=== PATIENT | female | born 1985 | race Caucasian/White ===

== ENCOUNTER 2023-07-17 07:44 | Outpatient (CLI) | payer BC, SELFPAY ==
--- NOTE | 2023-07-17 06:45 | DI.US_ITS ---
Exam(s) US OB SHAHBAZ WEIGHT EXAM: US OB SHAHBAZ WEIGHT CLINICAL HISTORY: ,HYPERTENSION,I10. TECHNIQUE: Transabdominal obstetrical ultrasound performed. COMPARISON: No exams were available for comparison FINDINGS: Number of fetuses: 1 position: CEPHALIC Placental location: There is a grade 1 anterior and fundal placenta. The placental tip is 12.2 cm fr om the internal os. No evidence of previa. BIOMETRIC DATA: BPD: 8.7cm, 35weeks 1day HC: 32.97cm, 37weeks 4days AC: 32.14cm, 36weeks FL: 6.8cm, 35weeks EFW: 2,776.52g, 6lb 2.57oz, 97% Composite Age: 36weeks SALLY: 08/14/2023 Heart Rate: 148bpm Amniotic fluid index: 14.05cm. Visually, amount of fluid is within normal limits. IMPRESSION: 1. Single live intrauterine gestation as above. 2. Estimated weight is 2777gms. This is the 97th percentile. 3. Amniotic fluid index is 14.1 cm. Visually within normal limits. DATA REPOSITORY:
[2023-07-17 09:58] VITALS: BP 123/82; PULSE 95; TEMP 37
[2023-07-17 10:16] VITALS: BP 123/82; PULSE 95
[2023-07-17 10:30] VITALS: BP 128/85; PULSE 87
--- NOTE | 2023-07-17 11:09 | W.OBNST ---
Date of service: 07/17/23 Time of Service: 11:09 NST Evaluation Gestational Age Gestational Age in Weeks and Days: 32 Weeks and 5Days Note Ultrasound Done: N/A. NST Note Note: Luz Maria is here for NST due to chronic hypertension US today shows baby in 97%ile. Reactive NST. . Will continue weekly NST and BP checks. NST Reviewed and Verified by: Florence Bethea
[2023-07-17 11:51] VITALS: BP 123/82; PULSE 95; TEMP 37
--- NOTE | 2023-07-17 11:51 | W.OBNST ---
Date of service: 07/17/23 Time of Service: 11:52 NST Evaluation Reason for NST Reasons for Nonstress Test: GESTATIONAL HYPERTENSION Gestational Age Gestational Age in Weeks and Days: 32 Weeks and 5Days Test and Monitor Explained Test/Monitor Explained: Test Explained Vital Signs Blood Pressure: 123/82 Pulse: 95 Temperature: 98.6 F NST Information Date on Monitor: 07/17/23 Time on Monitor: 10:00 Date off Monitor: 07/17/23 Time off Monitor: 10:42 Total Time on Monitor: 42 NST Interventions: None NST Evaluation Patient States Movement: Present FHR Baseline: 140 Variability: Moderate 6-25 bpm Accelerations: 15x15 Decelerations: None NST Results: Reactive Note Ultrasound Done: N/A. NST Note Note: Luz Maria is here for NST due to chronic hypertension. Bp repeated 128/85. US today shows baby in 97%ile. Reactive NST. Will continue weekly NST and BP checks. NST Reviewed and Verified by: Florence Bethea
== END 2023-07-17 07:45 | disposition home or self-care (01) ==
PROVIDERS: Visit Provider Advanced Practice Midwife
DX: O13.3 Gestational [pregnancy-induced] hypertension without significant proteinuria, third trimester (principal); Z3A.32 32 weeks gestation of pregnancy
CPT/HCPCS: 76816; 59025

== ENCOUNTER 2023-07-23 05:57 | Outpatient (CLI) | payer BC, SELFPAY ==
[2023-07-23 12:34] VITALS: BP 132/80; PULSE 89
[2023-07-23 12:55] VITALS: BP 132/80; PULSE 89
--- NOTE | 2023-08-28 12:26 | W.OBNST ---
Date of service: 07/23/23 Time of Service: 14:00 NST Evaluation Reason for NST Reasons for Nonstress Test: CHRONIC MATERNAL DM Gestational Age Gestational Age in Weeks and Days: 38 Weeks and 4Days Test and Monitor Explained Test/Monitor Explained: Test Explained Vital Signs Blood Pressure: 132/80 Pulse: 89 Urine Results Urine Protein: Negative Urine Ketones: Negative Urine Glucose: Negative Urine Blood: Negative NST Information Date on Monitor: 07/23/23 Time on Monitor: 12:36 Date off Monitor: 07/23/23 Time off Monitor: 13:00 Total Time on Monitor: 24 NST Interventions: PO Hydration and Reposition Patient Contraction Frequency: 0 NST Evaluation Patient States Movement: Present FHR Baseline: 130 Variability: Moderate 6-25 bpm Accelerations: 15x15 Decelerations: None NST Results: Reactive Note Ultrasound Done: N/A. NST Note Note: Pt counseled regarding elevated BP and need for twice weekly NSTs for assessment of well being. She agrees to monitoring with NSTs. NST Reviewed and Verified by: Ronda Love
[2023-08-28 12:29] VITALS: BP 132/80; PULSE 89
== END 2023-07-23 13:00 ==
LOC: BCD 06:02 → OBS 12:25
PROVIDERS: Visit Provider Obstetrics & Gynecology Gynecology
DX: O13.3 Gestational [pregnancy-induced] hypertension without significant proteinuria, third trimester (principal); Z3A.33 33 weeks gestation of pregnancy
CPT/HCPCS: 59025

== ENCOUNTER 2023-08-06 09:31 | Outpatient (CLI) | payer BC, SELFPAY ==
[2023-08-06 13:47] VITALS: BP 132/93; PULSE 96; TEMP 36.7
[2023-08-06 14:01] VITALS: BP 132/93; PULSE 96
[2023-08-06 14:30] VITALS: BP 131/70; PULSE 85
[2023-08-06 15:12] LABS: COMMENT (LAB VIEW ONLY) 41.28 mg/dL; PROTEIN 10.5 mg/dL; Prot/Crea Ur Ratio 0.25
--- NOTE | 2023-08-28 12:35 | W.OBNST ---
Date of service: 08/06/23 Time of Service: 16:00 NST Evaluation Reason for NST Reasons for Nonstress Test: CHRONIC HYPERTENSION Gestational Age Gestational Age in Weeks and Days: 38 Weeks and 4Days Test and Monitor Explained Test/Monitor Explained: Test Explained, Monitor Explained and Patient Verbalized Understanding Vital Signs Blood Pressure: 132/93 Pulse: 96 Temperature: 98.1 F Urine Results Urine Protein: Negative Urine Ketones: Negative Urine Glucose: Negative Urine Blood: Negative NST Information Date on Monitor: 08/06/23 Time on Monitor: 13:53 Date off Monitor: 08/06/23 Time off Monitor: 14:24 Total Time on Monitor: 31 NST Interventions: PO Hydration Contraction Frequency: 0 NST Evaluation Patient States Movement: Present FHR Baseline: 130 Variability: Moderate 6-25 bpm Accelerations: 15x15 Decelerations: None NST Results: Reactive Note Ultrasound Done: N/A. NST Note Note: Reactive NST. Pt agrees to continue twice weekly NSTs. NST Reviewed and Verified by: Ronda Love
[2023-08-28 12:37] VITALS: BP 132/93; PULSE 96; TEMP 36.7
== END 2023-08-06 15:30 ==
LOC: BCD 09:32 → OBS 13:44
PROVIDERS: Advanced Practice Midwife; Visit Provider Obstetrics & Gynecology Gynecology
DX: O13.3 Gestational [pregnancy-induced] hypertension without significant proteinuria, third trimester (principal); Z3A.38 38 weeks gestation of pregnancy
CPT/HCPCS: 59025; 82565; 84156

== ENCOUNTER 2023-08-06 12:53 | Outpatient (CLI) | payer BC, SELFPAY ==
[2023-08-06 13:49] LABS: HCT 40.5 % (36.0-46.0); HGB 13.3 g/dL (11.2-15.7); MCH 31.4 pg (27.0-33.0); MCHC 32.8 % (32.0-36.0); MCV 96 fL (80-95); MPV 11.8 fL (8.0-11.0); Platelet Count 165 10^3/uL (130-400); RBC 4.24 10^6/uL (3.93-5.22); RDW 13.8 % (11.7-14.6); RDW-SD 48.5 fL; WBC 9.35 10^3/uL (4.4-10.8)
[2023-08-06 14:35] LABS: ALT 14 U/L (14-59); AST 11 U/L (15-37); Albumin 2.8 g/dL (3.4-5.0); Alkaline Phosphatase 107 U/L (46-116); Anion Gap 11.6 mmol/L (3-11); BUN 6 mg/dL (7-18); Bilirubin, Total 0.4 mg/dL (0.2-1.0); CO2 24.4 mmol/L (21.0-32.0); CREATININE 0.8 mg/dL (0.55-1.02); Chloride 105 mmol/L (98-107); Estimated GFR 97.26 (mL/min/1.73m2); Glucose 88 mg/dL (74-106); Potassium 3.8 mmol/L (3.5-5.1); Sodium 141 mmol/L (136-145); Total Protein 6.8 g/dL (6.4-8.2); Uric Acid 3.9 mg/dL (2.6-6.0)
== END 2023-08-06 12:54 | disposition home or self-care (01) ==
LOC: LBO 12:54
PROVIDERS: Visit Provider Advanced Practice Midwife
DX: O13.3 Gestational [pregnancy-induced] hypertension without significant proteinuria, third trimester (principal); Z34.93 Encounter for supervision of normal pregnancy, unspecified, third trimester
CPT/HCPCS: 36415; 80053; 85027; 86850; 86900; 86901; 84550

== ENCOUNTER 2023-08-13 08:00 | Outpatient (CLI) | payer BC, SELFPAY ==
[2023-08-13 12:18] VITALS: BP 140/96; PULSE 90; TEMP 36.8
[2023-08-13 12:27] VITALS: BP 140/96; PULSE 90
[2023-08-13 12:39] VITALS: BP 131/86; PULSE 88
[2023-08-13 13:45] LABS: Abs Immature Grans 0.05 10^3/uL (0.0-0.06); Absolute Basophil Count 0.01 10^3/uL (0.0-0.2); Absolute Eosinophil Count 0.05 10^3/uL (0.0-0.7); Absolute Lymphocyte Count 2.05 10^3/uL (1.2-3.4); Absolute Monocyte Count 0.72 10^3/uL (0.1-0.8); Absolute Neutrophil Count 6.75 10^3/uL (1.2-6.7); Basophils % 0.1; Eosinophils % 0.5; HGB 13.1 g/dL (11.2-15.7); Immature Grans % 0.5; Lymphocytes % 21.3; MCH 31.1 pg (27.0-33.0); MCHC 32.8 % (32.0-36.0); MCV 95 fL (80-95); MPV 11.8 fL (8.0-11.0); Monocytes % 7.5; Neutrophils % 70.1; Platelet Count 154 10^3/uL (130-400); RBC 4.21 10^6/uL (3.93-5.22); RDW 13.6 % (11.7-14.6); RDW-SD 47.4 fL; WBC 9.63 10^3/uL (4.4-10.8)
--- NOTE | 2023-08-13 13:50 | W.OBNST ---
Date of service: 08/13/23 Time of Service: 13:51 NST Evaluation Reason for NST Reasons for Nonstress Test: GESTATIONAL HYPERTENSION Gestational Age Gestational Age in Weeks and Days: 36 Weeks and 4Days Test and Monitor Explained Test/Monitor Explained: Test Explained, Monitor Explained and Patient Verbalized Understanding Vital Signs Blood Pressure: 140/96 Pulse: 90 Temperature: 98.2 F Urine Results Urine Protein: Negative Urine Ketones: Negative Urine Glucose: Negative Urine Blood: Negative NST Information Date on Monitor: 08/13/23 Time on Monitor: 12:20 Date off Monitor: 08/13/23 Time off Monitor: 12:53 Total Time on Monitor: 33 NST Interventions: PO Hydration Contraction Frequency: 0 NST Evaluation Patient States Movement: Present FHR Baseline: 130 Variability: Moderate 6-25 bpm Accelerations: 15x15 Decelerations: None NST Results: Reactive Note Ultrasound Done: N/A. NST Note Note: Category 1, reactive NST. NST Reviewed and Verified by: Kandy Garcia
[2023-08-13 13:51] VITALS: BP 140/96; PULSE 90; TEMP 36.8
[2023-08-13 13:57] LABS: Diff Comment Agrees w/ Instrument; RBC Morphology Normal
[2023-08-13 13:58] LABS: PROTEIN 13.2 mg/dL
[2023-08-13 14:12] LABS: ALT 16 U/L (14-59); AST 14 U/L (15-37); Albumin 2.9 g/dL (3.4-5.0); Alkaline Phosphatase 106 U/L (46-116); Anion Gap 10.9 mmol/L (3-11); BUN 9 mg/dL (7-18); Bilirubin, Total 0.4 mg/dL (0.2-1.0); CO2 24.1 mmol/L (21.0-32.0); CREATININE 0.7 mg/dL (0.55-1.02); Calcium 9.6 mg/dL (8.5-10.1); Chloride 104 mmol/L (98-107); Estimated GFR 114.16 (mL/min/1.73m2); Glucose 70 mg/dL (74-106); Potassium 3.8 mmol/L (3.5-5.1); Sodium 139 mmol/L (136-145); Total Protein 6.8 g/dL (6.4-8.2)
== END 2023-08-13 14:29 ==
LOC: BCD 08:02 → OBS 12:10
PROVIDERS: Visit Provider Obstetrics & Gynecology
DX: O13.3 Gestational [pregnancy-induced] hypertension without significant proteinuria, third trimester (principal); Z3A.36 36 weeks gestation of pregnancy
CPT/HCPCS: 36415; 80053; 59025; 82565; 84156; 85025; 87081

== ENCOUNTER 2023-08-20 08:46 | Outpatient (CLI) | payer BC, SELFPAY ==
[2023-08-20 13:05] VITALS: BP 127/91; PULSE 88; TEMP 36.5
[2023-08-20 13:21] VITALS: BP 127/91; PULSE 88
--- NOTE | 2023-08-20 14:09 | PDOC.NST_ITS ---
Date of service: 08/20/23 Time of Service: 14:09 NST Evaluation Reason for NST Reasons for Nonstress Test: GESTATIONAL HYPERTENSION Reason for NST Other: PT DENIES HEADACHE OR RT UPPER QUADRANT PAIN Gestational Age Gestational Age in Weeks and Days: 37 Weeks and 4Days Test and Monitor Explained Test/Monitor Explained: Test Explained Vital Signs Blood Pressure: 127/91 Pulse: 88 Temperature: 97.7 F Urine Results Urine Protein: Negative Urine Ketones: Negative Urine Glucose: Negative Urine Blood: Negative NST Information Date on Monitor: 08/20/23 Time on Monitor: 13:00 NST Interventions: None NST Evaluation Patient States Movement: Present FHR Baseline: 130 Variability: Moderate 6-25 bpm Accelerations: 15x15 Decelerations: None NST Results: Reactive Note Ultrasound Done: N/A. NST Note Note: NST done due to HTN on Labetalol 200 mg PO twice daily. She does not have questions today per RN and prefers to avoid contact with provider. Has appoi ntment 08/23/[address] May and she will keep that appointment. NST is overall reassuring and reactive although difficulty to keep tracing consistently but audible accelerations are present. No signs of labor. NST Reviewed and Verified by: Florence Geronimo
[2023-08-20 14:12] VITALS: BP 127/91; PULSE 88; TEMP 36.5
== END 2023-08-20 15:04 ==
LOC: BCD 08:47 → OBS 12:27
PROVIDERS: Visit Provider Obstetrics & Gynecology
DX: O13.3 Gestational [pregnancy-induced] hypertension without significant proteinuria, third trimester (principal); Z3A.37 37 weeks gestation of pregnancy
CPT/HCPCS: 59025

== ENCOUNTER 2023-08-23 07:43 | Outpatient (CLI) | payer BC, SELFPAY ==
[2023-08-23 14:23] VITALS: BP 142/92; PULSE 91; TEMP 36.7
--- NOTE | 2023-08-23 17:09 | W.OBNST ---
Date of service: 08/23/23 Time of Service: 13:30 NST Evaluation Reason for NST Reasons for Nonstress Test: GESTATIONAL HYPERTENSION Gestational Age Gestational Age in Weeks and Days: 38 Weeks and 0Days Test and Monitor Explained Test/Monitor Explained: Test Explained, Monitor Explained and Patient Verbalized Understanding Vital Signs Blood Pressure: 142/92 Pulse: 91 Temperature: 98.1 F Urine Results Urine Protein: Negative Urine Ketones: Negative Urine Glucose: Negative Urine Blood: Negative NST Information Date on Monitor: 08/23/23 Time on Monitor: 13:22 Date off Monitor: 08/23/23 Time off Monitor: 13:46 Total Time on Monitor: 24 NST Interventions: PO Hydration Contraction Frequency: None NST Evaluation Patient States Movement: Present FHR Baseline: 135 Variability: Moderate 6-25 bpm Accelerations: 15x15 Decelerations: None NST Results: Reactive Note Ultrasound Done: N/A. NST Note Note: Pt taking 200mg Labetalol PO. She is checking home BPs and says they are 130s/80s. She denies s/s of PEC or labor. She plans to return Tues for repeat NST. NST Reviewed and Verified by: Leslie May
[2023-08-23 17:11] VITALS: BP 142/92; PULSE 91; TEMP 36.7
--- NOTE | 2023-08-27 17:25 | W.OBNST ---
Date of service: 08/23/23 Time of Service: 15:00 NST Evaluation Reason for NST Reasons for Nonstress Test: GESTATIONAL HYPERTENSION Gestational Age Gestational Age in Weeks and Days: 38 Weeks and 4Days Test and Monitor Explained Test/Monitor Explained: Test Explained, Monitor Explained and Patient Verbalized Understanding Vital Signs Blood Pressure: 142/92 Pulse: 91 Temperature: 98.1 F Urine Results Urine Protein: Negative Urine Ketones: Negative Urine Glucose: Negative Urine Blood: Negative NST Information Date on Monitor: 08/23/23 Time on Monitor: 13:22 Date off Monitor: 08/23/23 Time off Monitor: 13:46 Total Time on Monitor: 24 NST Interventions: PO Hydration Contraction Frequency: None NST Evaluation Patient States Movement: Present FHR Baseline: 135 Variability: Moderate 6-25 bpm Accelerations: 15x15 Decelerations: None NST Results: Reactive Note Ultrasound Done: N/A. NST Note Note: Pt presents for scheduled NST on BC. She reports that she has been compliant with Labetalol dosing. 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 She will continue with twice weekly NSTs. NST Reviewed and Verified by: Ronda Love
[2023-08-27 17:28] VITALS: BP 142/92; PULSE 91; TEMP 36.7
== END 2023-08-23 13:50 ==
LOC: BCD 07:44 → OBS 14:19
PROVIDERS: Visit Provider Obstetrics & Gynecology Gynecology
DX: O13.3 Gestational [pregnancy-induced] hypertension without significant proteinuria, third trimester (principal); Z3A.38 38 weeks gestation of pregnancy
CPT/HCPCS: 59025

== ENCOUNTER 2023-08-27 12:58 | Outpatient (CLI) | payer BC, SELFPAY ==
[2023-08-27 13:12] VITALS: BP 139/100; PULSE 86; TEMP 36.8
[2023-08-27 13:32] VITALS: BP 150/95; PULSE 84
[2023-08-27 13:34] VITALS: BP 171/99; PULSE 85
[2023-08-27 13:59] VITALS: BP 169/106; PULSE 83
--- NOTE | 2023-08-27 14:00 | NUR.NOTE ---
Nursing Note:Dr Rajan in to see pt, performing bedside ulrasound
--- NOTE | 2023-08-27 14:32 | PDOC.NST_ITS ---
Date of service: 08/27/23 Time of Service: 14:36 NST Evaluation Reason for NST Reasons for Nonstress Test: DECREASED MOVEMENT and CHRONIC HYPERTENSION Gestational Age Gestational Age in Weeks and Days: 38 Weeks and 4Days Test and Monitor Explained Test/Monitor Explained: Test Explained Vital Signs Blood Pressure: 139/100 Pulse: 86 Temperature: 98.3 F Urine Results Urine Protein: Negative Urine Ketones: Negative Urine Glucose: Negative Urine Blood: Negative NST Information Time on Monitor: 13:00 Date off Monitor: 08/27/23 Time off Monitor: 13:30 NST Interventions: PO Hydration Contraction Frequency: none Comments: Reactive NST Evaluation Patient States Movement: Present FHR Baseline: 130 Variability: Moderate 6-25 bpm Accelerations: 15x15 Decelerations: None NST Results: Reactive Note Ultrasound Done: SHAHBAZ (HTN) Largest Vertical Pocket: 5.4 Total SHAHBAZ: 12.8 Other Pertinent Findings: Heart Rate, Presentation (VTX) and Placental Location Coding for SHAHBAZ w/NST: Completed Exam. NST Note Note: Pt presented for scheduled NST secondary to gestational HTN. She reports being compliant with Labetalol 200mg twice daily dosing. No H/A, no vision changes, no LE edema or abdomipain. 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 Pt's initial BP while lying down 139/100. Serial repeat BPs 150/95, 171/99, 169/106. Pt was counseled that today's BP represent a change from previous values, that they are considered an indication for immediate induction/move towards delivery. I was not able to convince her with my counseling that she should agree to admission and IOL for prevention of injury to herself or fetus. Pt was advised to increase her Labetalol to 300mg BID and to call the office tomorrow (Pt working from home) morning to report on PM and AM BP. SVE: closed, 25% effaced, -2, midpositon, firm. She was counseled regarding S/S of preeclampsia. Pt left , and while aware of my recommendation to proceed with cervical ripening and IOL she has declined to do so. Will f/u with her tomorrow in am. NST Reviewed and Verified by: Ronda Love
[2023-08-27 14:34] VITALS: BP 139/100; PULSE 86; TEMP 36.8
== END 2023-08-27 14:48 ==
LOC: BCD 12:59 → OBS 13:06
PROVIDERS: Visit Provider Advanced Practice Midwife
DX: O36.8131 Decreased fetal movements, third trimester, fetus 1 (principal); O13.3 Gestational [pregnancy-induced] hypertension without significant proteinuria, third trimester; Z3A.38 38 weeks gestation of pregnancy
CPT/HCPCS: 59025

== ENCOUNTER 2023-08-29 23:45 | Inpatient (IN) | payer BC, SELFPAY ==
[2023-08-28 22:53] VITALS: BP 163/91; PULSE 84
[2023-08-28 23:00] VITALS: BP 145/94; PULSE 85
--- NOTE | 2023-08-28 23:44 | HPE_ITS ---
Date of service: 08/28/23 Time of Service: 23:45 Assessment and Plan Assessment and plan (1) Gestational hypertension affecting first : Status: Acute Assessment and plan: Baseline labs to be drawn. Will monitor BPs (2) Ruptured, membranes, premature: Status: Acute Assessment and plan: Pt starting to feel some cramping so would like to wait and see what happens. She is hesitant to intervene at this point. We discussed balancing the risks of infection that increase the longer she is ruptured vs intervention at an earlier stage. At this point it seems reasonable to give it some time. She declines a cervical exam at this point. OB-HPI Labor/Delivery History of Present Illness Reason for Visit: NST Chief Complaint: Suspected Rupture of Membranes , Associated Signs and Symptoms of Suspected ROM: grossly ruptured. SALLY Calculator Estimated Delivery Date Method Current WG Current Estimate 09/06/23 LMP (Certain) 38w 6d History of Present Expected Delivery Route/Plan - MD WANG - Doug strange circ Plans hypnobirthing and nitrous for labor Specific Issues/Plan 1. Transfer 32 wks from [facility], seeking access to nitrous oxide for labor 2. Stage I cHTN - 1st elevated BP of 142/88 @ 24 wks per records. Neg/nml initial labs @ [facility] [place]-06/18/23 - 07/12/[address] Love: recommend Labetalol 100 mg BID, 2x/wk NST, patient declined. - Pt accepts wkly visits w/NST, growth US - 08/02/23: Pt agrees to Labetalol 100 mg PO BID due to elevated BP's at home ->increase to 200 BID and then 300 BID 08/26. 3. BMI over 30 - Glucola @ 28 [id number] ([facility] [place] records) - ASA recommended in first trimester at [facility] [place] 4. EFW 97%ile @34wks (HC significantly greater than other measurements) Narrative: Pt reports waking up at 9:15 with leaking fluid. She got up and went to the bathroom and laid back down and continued to leak. She started having some cramping about an hour later. Some slight pink-tinge but no bright red blood. Good movement. Review of Systems Constitutional Constitutional: Reports system reviewed and no additional complaints, except as documented Gastrointestinal Gastrointestinal: Denies nausea and Denies vomiting Genitourinary Genitourinary: Reports system reviewed and no additional complaints, except as documented Musculoskeletal Comments: No regular contractions PFSH All Active Problems (Updated 08/29/23 @ 00:01 by Leslie May MD) Ruptured, membranes, premature (Acute) Gestational hypertension affecting first (Acute) Stage 1 hypertension (Acute) (Acute) High BMI (Acute) Advanced maternal age (AMA) in (Acute) Medical History (Updated 08/29/23 @ 00:01 by Leslie May MD) Pyelonephritis in her 20's Surgical History (Updated 07/12/23 @ 12:15 by Florence Geronimo CNM) H/O wisdom tooth extraction Family History (Updated 07/12/23 @ 12:17 by Florence Geronimo CNM) Maternal Grandfather Heart disease Maternal Grandmother Stroke Mother Thyroid disease Paternal Grandmother Pulmonary embolism Maternal Uncle Diabetes Paternal Grandfather Diabetes Social History Smoking risk assessment performed?: No History History 1 Para 0 Hx # Term Pregnancies 0 Multiple births 0 Hx # Pregnancies 0 Ectopic pregnancies 0 AB induced 0 Hx Number of Living Children 0 AB spontaneous 0 Meds Allergies and Home Medications Allergies Allergy/AdvReac Type Severity Reaction Status Date / Time No Known Allergies Allergy Verified 07/23/23 13:11 Home Medications Medication Instructions Recorded Confirmed Type aspirin 81 mg chewable tablet 81 mg PO DAILY 06/27/23 08/13/23 History famotidine 20 mg tablet (Pepcid) 20 mg PO DAILY 06/27/23 08/13/23 History vits no.126-ferrous fum 1 tab PO DAILY 06/27/23 08/13/23 History 28 mg iron-folic acid 800 mcg tablet (Classic ) labetalol 100 mg tablet 200 mg (2 x 100 mg) PO BID #120 08/19/23 Rx tabs Exam Physical Exam Vital signs: Pulse BP 85 145/94 H 08/28/23 23:00 08/28/23 23:00 Vital Signs Reviewed: Yes Detailed Labor and Delivery Exam Mullins Score: Cervical Points Exam 0 1 2 3 Dilation Closed 1-2cm 3-4 cm 5-6cm Effacement 0-30% 40-50% 60-70% 80% Consistency Firm Medium Soft Station -3 -2 -1,0 +1,+2 Position Posterior Mid Anterior Comments: Declined cervical exam at this point. Fetus A Heart Rate Baseline: 130 Monitor Accelerations: 15 X 15 Monitor Decelerations: None Variability: Moderate (6-25 BPM) Presentation: Vertex Categories: Category I Est. Weight: 8 lb 8 oz Date of Membrane Rupture: 08/28/23 Time of Membrane Rupture: 09:15 Detailed HEENT Exam Head: Present normocephalic and atraumatic Detailed Abdominal Exam Comments: gravid, nontender Extremities Exam Extremities Exam: Normal (no edema, 2+ DTRs b/l) Detailed Neurological Exam Neurological: Present alert, oriented X3 and CN II-XII intact DetailedPsychiatric Exam Psychiatric: Present normal affect, normal thought process and cooperative Results Results Group Beta Strep: Negative Blood Type: O+ Rubella Status: Immune Varicella Immunity: Not Tested Risk Assessment Risk for Shoulder Dystocia Historical/Initial OB: POSITIVE FOR: Pre- BMI>30; NEGATIVE FOR: Pelvic Abnormality, Previous Shoulder Dystocia or Previous Macrosomia Increased Risk?: Yes Risk for Pre-Eclampsia Yes, if one or more: POSTIVE FOR: Chronic HTN; NEGATIVE FOR: Hx Pre-E/Gest HTN, Multiple Gestation, Pre-gestational DM, Renal Disease, Systemic Lupus or APA Syndrome Yes, if 2 or more: POSITIVE FOR: Nulliparity and BMI>30 Risk for Post- Hemorrhage Initial: NEGATIVE FOR: Multiple Gestation, Previous PPH, Known Clotting Deficiency, Grand Multiparity or Anticoagulation Date/Initials: 07/12/23 Risks Reviewed Risks Reviewed Upon Admission: Yes
[2023-08-28 23:45] VITALS: BP 145/94; PULSE 86; RESP 16; TEMP 36.5
[2023-08-29] VITALS (169 sets, daily range): BP systolic 123–199; BP diastolic 76–113; PULSE 0–122; RESP 16–18; TEMP 36.3–37.2; O2SAT 96–100; BMI 38.7
[2023-08-29] LABS: HCT 40.9 % (36.0-46.0); MCH 31.9 pg (27.0-33.0); MCHC 34.2 % (32.0-36.0); MCV 93 fL (80-95); MPV 11.9 fL (8.0-11.0); Platelet Count 144 10^3/uL (130-400); RBC 4.39 10^6/uL (3.93-5.22); RDW 13.5 % (11.7-14.6); RDW-SD 45.7 fL; WBC 11.63 10^3/uL (4.4-10.8)
--- NOTE | 2023-08-29 00:12 | W.OBNST ---
Date of service: 08/28/23 Time of Service: 11:00 NST Evaluation Reason for NST Reasons for Nonstress Test: GESTATIONAL HYPERTENSION Gestational Age Gestational Age in Weeks and Days: 38 Weeks and 5Days Test and Monitor Explained Test/Monitor Explained: Test Explained NST Information Date on Monitor: 08/28/23 Time on Monitor: 22:45 Date off Monitor: 08/28/23 Time off Monitor: 23:20 Total Time on Monitor: 35 NST Interventions: None NST Evaluation Patient States Movement: Present FHR Baseline: 130 Variability: Moderate 6-25 bpm Accelerations: 15x15 Decelerations: None NST Results: Reactive Note Ultrasound Done: N/A. NST Note NST Reviewed and Verified by: Leslie May
[2023-08-29 00:14] LABS: ALT 15 U/L (14-59); AST 14 U/L (15-37); Albumin 2.9 g/dL (3.4-5.0); Alkaline Phosphatase 120 U/L (46-116); Anion Gap 12.2 mmol/L (3-11); BUN 12 mg/dL (7-18); Bilirubin, Total 0.4 mg/dL (0.2-1.0); CO2 20.8 mmol/L (21.0-32.0); CREATININE 0.8 mg/dL (0.55-1.02); Calcium 10.4 mg/dL (8.5-10.1); Chloride 106 mmol/L (98-107); Estimated GFR 97.26 (mL/min/1.73m2); Glucose 91 mg/dL (74-106); Potassium 4.2 mmol/L (3.5-5.1); Sodium 139 mmol/L (136-145); Total Protein 6.9 g/dL (6.4-8.2); Uric Acid 4.4 mg/dL (2.6-6.0)
[2023-08-29 02:16] LABS: COMMENT (LAB VIEW ONLY) 36.59 mg/dL; PROTEIN 7.8 mg/dL; Prot/Crea Ur Ratio 0.21
--- NOTE | 2023-08-29 03:51 | PGE_ITS ---
Date of service: 08/29/23 Time of Service: 03:51 Pelvic Exam Comments: Declines exam Fetus A Heart Rate Baseline: 130 Variability: Moderate (6-25 BPM) Assessment and Plan Assessment and plan (1) Ruptured, membranes, premature: Status: Acute Assessment and plan: Pt is becoming more uncomfortable. Considering trying nitrous. Declines exam yet. Objective Abnormal lab results 08/28/23 Range/Units 23:50 WBC 11.63 H (4.4-10.8) 10^3/uL MPV 11.9 H (8.0-11.0) fL Carbon Dioxide 20.8 L (21.0-32.0) mmol/L Anion Gap 12.2 H (3-11) mmol/L Calcium 10.4 H (8.5-10.1) mg/dL AST 14 L (15-37) U/L Alkaline Phosphatase 120 H (46-116) U/L Albumin 2.9 L (3.4-5.0) g/dL Temp Pulse Resp BP 97.9 F 80 16 149/87 H 08/29/23 01:59 08/29/23 01:59 08/29/23 01:59 08/29/23 01:59 Laboratory Results WBC 11.63 10^3/uL (4.4-10.8) H 08/28/23 23:50 RBC 4.39 10^6/uL (3.93-5.22) 08/28/23 23:50 Hgb 14.0 g/dL (11.2-15.7) 08/28/23 23:50 Hct 40.9 % (36.0-46.0) 08/28/23 23:50 MCV 93 fL (80-95) 08/28/23 23:50 MCH 31.9 pg (27.0-33.0) 08/28/23 23:50 MCHC 34.2 % (32.0-36.0) 08/28/23 23:50 RDW 13.5 % (11.7-14.6) 08/28/23 23:50 Plt Count 144 10^3/uL (130-400) 08/28/23 23:50 MPV 11.9 fL (8.0-11.0) H 08/28/23 23:50 Sodium 139 mmol/L (136-145) 08/28/23 23:50 Potassium 4.2 mmol/L (3.5-5.1) 08/28/23 23:50 Chloride 106 mmol/L (98-107) 08/28/23 23:50 Carbon Dioxide 20.8 mmol/L (21.0-32.0) L 08/28/23 23:50 Anion Gap 12.2 mmol/L (3-11) H 08/28/23 23:50 BUN 12 mg/dL (7-18) 08/28/23 23:50 Creatinine 0.8 mg/dL (0.55-1.02) 08/28/23 23:50 Est GFR (CKD-EPI 2020) 97.26 (mL/min/1.73m2) 08/28/23 23:50 Glucose 91 mg/dL (74-106) 08/28/23 23:50 Uric Acid 4.4 mg/dL (2.6-6.0) 08/28/23 23:50 Calcium 10.4 mg/dL (8.5-10.1) H 08/28/23 23:50 Total Bilirubin 0.4 mg/dL (0.2-1.0) 08/28/23 23:50 AST 14 U/L (15-37) L 08/28/23 23:50 ALT 15 U/L (14-59) 08/28/23 23:50 Alkaline Phosphatase 120 U/L (46-116) H 08/28/23 23:50 Total Protein 6.9 g/dL (6.4-8.2) 08/28/23 23:50 Albumin 2.9 g/dL (3.4-5.0) L 08/28/23 23:50 Ur Random Creatinine 36.59 mg/dL 08/29/23 01:58 U Random Total Protein 7.8 mg/dL 08/29/23 01:58 U [place] Prot/Creat Ratio 0.21 08/29/23 01:58 Patient ABO/Rh O Positive 08/28/23 23:50 Antibody Screen NEGATIVE 08/28/23 23:50 Vital Signs Reviewed: Yes Subjective Interval history since last seen: Pt feeling increasing discomfort still mainly down low but also with tightening across her abdomen. Continues to leak clear fluid. Results Hemoglobin/Hematocrit: Hgb 14.0 g/dL (11.2-15.7) 08/28/23 23:50 Hct 40.9 % (36.0-46.0) 08/28/23 23:50 Abnormal Lab Findings: Abnormal Labs 08/28/23 23:50 WBC 11.63 H MPV 11.9 H Carbon Dioxide 20.8 L Anion Gap 12.2 H Calcium 10.4 H AST 14 L Alkaline Phosphatase 120 H Albumin 2.9 L
--- NOTE | 2023-08-29 07:34 | W.PM.OBNL1 ---
Date of service: 08/29/23 Time of Service: 07:00 Pelvic Exam Dilation: 4 Effacement (%): 90 station: -3 Fetus A Monitor: Doppler Heart Rate Baseline: 130 Variability: Moderate (6-25 BPM) Assessment and Plan Assessment and plan (1) Normal labor: Status: Acute Assessment and plan: Pt with spontaneous rupture, progressing into labor spontaneously as well. Coping with nitrous. status reassuring BPs mildly elevated. Due for labetalol this am - will give 200mg and see how her pressures look. Labs normal. Will continue to monitor. Objective Abnormal lab results 08/28/23 Range/Units 23:50 WBC 11.63 H (4.4-10.8) 10^3/uL MPV 11.9 H (8.0-11.0) fL Carbon Dioxide 20.8 L (21.0-32.0) mmol/L Anion Gap 12.2 H (3-11) mmol/L Calcium 10.4 H (8.5-10.1) mg/dL AST 14 L (15-37) U/L Alkaline Phosphatase 120 H (46-116) U/L Albumin 2.9 L (3.4-5.0) g/dL Temp Pulse Resp BP 97.3 F L 84 16 136/93 H 08/29/23 05:34 08/29/23 05:24 08/29/23 01:59 08/29/23 05:24 Laboratory Results WBC 11.63 10^3/uL (4.4-10.8) H 08/28/23 23:50 RBC 4.39 10^6/uL (3.93-5.22) 08/28/23 23:50 Hgb 14.0 g/dL (11.2-15.7) 08/28/23 23:50 Hct 40.9 % (36.0-46.0) 08/28/23 23:50 MCV 93 fL (80-95) 08/28/23 23:50 MCH 31.9 pg (27.0-33.0) 08/28/23 23:50 MCHC 34.2 % (32.0-36.0) 08/28/23 23:50 RDW 13.5 % (11.7-14.6) 08/28/23 23:50 Plt Count 144 10^3/uL (130-400) 08/28/23 23:50 MPV 11.9 fL (8.0-11.0) H 08/28/23 23:50 Sodium 139 mmol/L (136-145) 08/28/23 23:50 Potassium 4.2 mmol/L (3.5-5.1) 08/28/23 23:50 Chloride 106 mmol/L (98-107) 08/28/23 23:50 Carbon Dioxide 20.8 mmol/L (21.0-32.0) L 08/28/23 23:50 Anion Gap 12.2 mmol/L (3-11) H 08/28/23 23:50 BUN 12 mg/dL (7-18) 08/28/23 23:50 Creatinine 0.8 mg/dL (0.55-1.02) 08/28/23 23:50 Est GFR (CKD-EPI 2020) 97.26 (mL/min/1.73m2) 08/28/23 23:50 Glucose 91 mg/dL (74-106) 08/28/23 23:50 Uric Acid 4.4 mg/dL (2.6-6.0) 08/28/23 23:50 Calcium 10.4 mg/dL (8.5-10.1) H 08/28/23 23:50 Total Bilirubin 0.4 mg/dL (0.2-1.0) 08/28/23 23:50 AST 14 U/L (15-37) L 08/28/23 23:50 ALT 15 U/L (14-59) 08/28/23 23:50 Alkaline Phosphatase 120 U/L (46-116) H 08/28/23 23:50 Total Protein 6.9 g/dL (6.4-8.2) 08/28/23 23:50 Albumin 2.9 g/dL (3.4-5.0) L 08/28/23 23:50 Ur Random Creatinine 36.59 mg/dL 08/29/23 01:58 U Random Total Protein 7.8 mg/dL 08/29/23 01:58 U [place] Prot/Creat Ratio 0.21 08/29/23 01:58 Patient ABO/Rh O Positive 08/28/23 23:50 Antibody Screen NEGATIVE 08/28/23 23:50 Vital Signs Reviewed: Yes Subjective Interval history since last seen: Pt is getting more uncomfortable but doing well with using nitrous. Continues to leak fluid, sometimes pink-tinged. Results Hemoglobin/Hematocrit: Hgb 14.0 g/dL (11.2-15.7) 08/28/23 23:50 Hct 40.9 % (36.0-46.0) 08/28/23 23:50 Abnormal Lab Findings: Abnormal Labs 08/28/23 23:50 WBC 11.63 H MPV 11.9 H Carbon Dioxide 20.8 L Anion Gap 12.2 H Calcium 10.4 H AST 14 L Alkaline Phosphatase 120 H Albumin 2.9 L
[2023-08-29] MEDS: Labetalol 100 MG TAB 200 MG PO ×2 (08:46→23:35)
[2023-08-29] MEDS: Calcium Carbonate *TUMS* 500 MG CHEW PO (08:46)
--- NOTE | 2023-08-29 10:59 | W.PM.OBNL1 ---
Date of service: 08/29/23 Time of Service: 10:59 Pelvic Exam Dilation: 5 Effacement (%): 90 station: -2 Cervix Position: mid Consistency: soft Vaginal Exam Presentation: Vertex Comments: Bloody show noted on pad. Fetus A Monitor: Doppler Heart Rate Baseline: 120 Variability: Moderate (6-25 BPM) Assessment and Plan Assessment and plan (1) Normal labor: Status: Acute Assessment and plan: Pt making slow progress. using nitrous. Continue with expectant management. (2) Gestational hypertension affecting first : Status: Acute Assessment and plan: BPs remain mildly elevated. Labs normal. Objective Abnormal lab results 08/28/23 Range/Units 23:50 WBC 11.63 H (4.4-10.8) 10^3/uL MPV 11.9 H (8.0-11.0) fL Carbon Dioxide 20.8 L (21.0-32.0) mmol/L Anion Gap 12.2 H (3-11) mmol/L Calcium 10.4 H (8.5-10.1) mg/dL AST 14 L (15-37) U/L Alkaline Phosphatase 120 H (46-116) U/L Albumin 2.9 L (3.4-5.0) g/dL Temp Pulse Resp BP 98.2 F 93 H 16 129/99 H 08/29/23 10:30 08/29/23 10:30 08/29/23 10:30 08/29/23 10:30 Laboratory Results WBC 11.63 10^3/uL (4.4-10.8) H 08/28/23 23:50 RBC 4.39 10^6/uL (3.93-5.22) 08/28/23 23:50 Hgb 14.0 g/dL (11.2-15.7) 08/28/23 23:50 Hct 40.9 % (36.0-46.0) 08/28/23 23:50 MCV 93 fL (80-95) 08/28/23 23:50 MCH 31.9 pg (27.0-33.0) 08/28/23 23:50 MCHC 34.2 % (32.0-36.0) 08/28/23 23:50 RDW 13.5 % (11.7-14.6) 08/28/23 23:50 Plt Count 144 10^3/uL (130-400) 08/28/23 23:50 MPV 11.9 fL (8.0-11.0) H 08/28/23 23:50 Sodium 139 mmol/L (136-145) 08/28/23 23:50 Potassium 4.2 mmol/L (3.5-5.1) 08/28/23 23:50 Chloride 106 mmol/L (98-107) 08/28/23 23:50 Carbon Dioxide 20.8 mmol/L (21.0-32.0) L 08/28/23 23:50 Anion Gap 12.2 mmol/L (3-11) H 08/28/23 23:50 BUN 12 mg/dL (7-18) 08/28/23 23:50 Creatinine 0.8 mg/dL (0.55-1.02) 08/28/23 23:50 Est GFR (CKD-EPI 2020) 97.26 (mL/min/1.73m2) 08/28/23 23:50 Glucose 91 mg/dL (74-106) 08/28/23 23:50 Uric Acid 4.4 mg/dL (2.6-6.0) 08/28/23 23:50 Calcium 10.4 mg/dL (8.5-10.1) H 08/28/23 23:50 Total Bilirubin 0.4 mg/dL (0.2-1.0) 08/28/23 23:50 AST 14 U/L (15-37) L 08/28/23 23:50 ALT 15 U/L (14-59) 08/28/23 23:50 Alkaline Phosphatase 120 U/L (46-116) H 08/28/23 23:50 Total Protein 6.9 g/dL (6.4-8.2) 08/28/23 23:50 Albumin 2.9 g/dL (3.4-5.0) L 08/28/23 23:50 Ur Random Creatinine 36.59 mg/dL 08/29/23 01:58 U Random Total Protein 7.8 mg/dL 08/29/23 01:58 U [place] Prot/Creat Ratio 0.21 08/29/23 01:58 Patient ABO/Rh O Positive 08/28/23 23:50 Antibody Screen NEGATIVE 08/28/23 23:50 Vital Signs Reviewed: Yes Subjective Interval history since last seen: Pt feeling stronger contractions. Doing lots of position changes and movement. Using nitrous. Did not sleep all night so she is feeling tired. Results Hemoglobin/Hematocrit: Hgb 14.0 g/dL (11.2-15.7) 08/28/23 23:50 Hct 40.9 % (36.0-46.0) 08/28/23 23:50 Abnormal Lab Findings: Abnormal Labs 08/28/23 23:50 WBC 11.63 H MPV 11.9 H Carbon Dioxide 20.8 L Anion Gap 12.2 H Calcium 10.4 H AST 14 L Alkaline Phosphatase 120 H Albumin 2.9 L
--- NOTE | 2023-08-29 13:33 | W.PM.OBNL1 ---
Date of service: 08/29/23 Time of Service: 13:33 Informed Consent Informed Consent: Regional Anesthesia (contacted. PROTECTION OFFICER will speak with pt ) Pelvic Exam Dilation: 8 Effacement (%): 0 station: 0 Position: OA Cervix Position: mid Consistency: soft Vaginal Exam Presentation: Cephalic Comments: forebag present. Contractions Monitor Mode: External Contraction Frequency(min): regular Intensity: Moderate Fetus A Monitor: External (US) Heart Rate Baseline: 140 Presentation: Cephalic Variability: Moderate (6-25 BPM) Categories: Category I FHR Rhythm: Regular Characteristics: Normal Accelerations: Present Decelerations: None Amniotic Membrane Status: Ruptured Assessment and Plan Assessment and plan (1) Normal labor: Status: Acute Assessment and plan: I spoke with pt and notified her of her current cervical exam and congratulated her on her labor progress. She was notified as per her wishes PROTECTION OFFICER was consulted and will speak with pt regarding labor analgesia options Objective Abnormal lab results 08/28/23 Range/Units 23:50 WBC 11.63 H (4.4-10.8) 10^3/uL MPV 11.9 H (8.0-11.0) fL Carbon Dioxide 20.8 L (21.0-32.0) mmol/L Anion Gap 12.2 H (3-11) mmol/L Calcium 10.4 H (8.5-10.1) mg/dL AST 14 L (15-37) U/L Alkaline Phosphatase 120 H (46-116) U/L Albumin 2.9 L (3.4-5.0) g/dL Temp Pulse Resp BP 98.4 F 97 H 16 135/98 H 08/29/23 12:33 08/29/23 12:58 08/29/23 10:30 08/29/23 12:58 Laboratory Results WBC 11.63 10^3/uL (4.4-10.8) H 08/28/23 23:50 RBC 4.39 10^6/uL (3.93-5.22) 08/28/23 23:50 Hgb 14.0 g/dL (11.2-15.7) 08/28/23 23:50 Hct 40.9 % (36.0-46.0) 08/28/23 23:50 MCV 93 fL (80-95) 08/28/23 23:50 MCH 31.9 pg (27.0-33.0) 08/28/23 23:50 MCHC 34.2 % (32.0-36.0) 08/28/23 23:50 RDW 13.5 % (11.7-14.6) 08/28/23 23:50 Plt Count 144 10^3/uL (130-400) 08/28/23 23:50 MPV 11.9 fL (8.0-11.0) H 08/28/23 23:50 Sodium 139 mmol/L (136-145) 08/28/23 23:50 Potassium 4.2 mmol/L (3.5-5.1) 08/28/23 23:50 Chloride 106 mmol/L (98-107) 08/28/23 23:50 Carbon Dioxide 20.8 mmol/L (21.0-32.0) L 08/28/23 23:50 Anion Gap 12.2 mmol/L (3-11) H 08/28/23 23:50 BUN 12 mg/dL (7-18) 08/28/23 23:50 Creatinine 0.8 mg/dL (0.55-1.02) 08/28/23 23:50 Est GFR (CKD-EPI 2020) 97.26 (mL/min/1.73m2) 08/28/23 23:50 Glucose 91 mg/dL (74-106) 08/28/23 23:50 Uric Acid 4.4 mg/dL (2.6-6.0) 08/28/23 23:50 Calcium 10.4 mg/dL (8.5-10.1) H 08/28/23 23:50 Total Bilirubin 0.4 mg/dL (0.2-1.0) 08/28/23 23:50 AST 14 U/L (15-37) L 08/28/23 23:50 ALT 15 U/L (14-59) 08/28/23 23:50 Alkaline Phosphatase 120 U/L (46-116) H 08/28/23 23:50 Total Protein 6.9 g/dL (6.4-8.2) 08/28/23 23:50 Albumin 2.9 g/dL (3.4-5.0) L 08/28/23 23:50 Ur Random Creatinine 36.59 mg/dL 08/29/23 01:58 U Random Total Protein 7.8 mg/dL 08/29/23 01:58 U [place] Prot/Creat Ratio 0.21 08/29/23 01:58 Patient ABO/Rh O Positive 08/28/23 23:50 Antibody Screen NEGATIVE 08/28/23 23:50 Subjective Interval history since last seen: Pt feels that nitrous oxide is not as effective for pain relief. Wondering about calling epidural for epidiural. Results Hemoglobin/Hematocrit: Hgb 14.0 g/dL (11.2-15.7) 08/28/23 23:50 Hct 40.9 % (36.0-46.0) 08/28/23 23:50 Abnormal Lab Findings: Abnormal Labs 08/28/23 23:50 WBC 11.63 H MPV 11.9 H Carbon Dioxide 20.8 L Anion Gap 12.2 H Calcium 10.4 H AST 14 L Alkaline Phosphatase 120 H Albumin 2.9 L
--- NOTE | 2023-08-29 13:41 | ANES.PREOP_ITS ---
General Info Date of Service Date Performed: 08/29/23 Height: 5 ft 6 in Weight: 108.862 kg Body Mass Index (BMI): 38.7 Meds Allergies and Home Medications Allergies Allergy/AdvReac Type Severity Reaction Status Date / Time No Known Allergies Allergy Verified 07/23/23 13:11 Home Medication Medication Instructions Recorded aspirin 81 mg chewable tablet 81 mg PO DAILY 06/27/23 famotidine 20 mg tablet (Pepcid) 20 mg PO DAILY 06/27/23 vits no.126-ferrous fum 1 tab PO DAILY 06/27/23 28 mg iron-folic acid 800 mcg tablet (Classic ) labetalol 100 mg tablet 200 mg (2 x 100 mg) PO BID #120 08/19/23 tabs Current Visit Medications: Current Medications Generic Name Dose Route Start Last Admin Trade Name Freq PRN Reason Stop Dose Admin Fentanyl/Ropivacaine 200 ml 08/29/23 13:45 Fentanyl/Ropivacaine 2 Mcg/Ml And 0.1% 200 Ml Cadd Cassette EP DIRECTED BARON IV Miscellaneous Supplies 1 each 08/28/23 23:45 Iv Access IV DIRECTED BARON Labetalol HCl 200 mg 08/29/23 08:30 08/29/23 08:46 Labetalol 100 Mg Tab PO 200 mg BID BARON Administration Sodium Chloride 0 ml 08/28/23 23:38 Normal Saline Flush 10 Ml Syr IVP PRN PRN Sodium Chloride 0 ml 08/29/23 08:30 08/29/23 09:48 Normal Saline Flush 10 Ml Syr IVP Not Given BID BARON Sodium Chloride 0 ml 08/28/23 23:38 Normal Saline 10 Ml Vial IJ DIRECTED PRN PFSH Active Problems Active Problems: Problem Status Onset Code Normal labor O80, Z37.9 Ruptured, membranes, premature O42.90 Gestational hypertension affecting first O13.9 Stage 1 hypertension I10 Z34.90 High BMI Advanced maternal age (AMA) in Medical History Medical History (Updated 08/29/23 @ 07:38 by Leslie May MD) Pyelonephritis in her 20's Surgical History Surgical History (Updated 07/12/23 @ 12:15 by Florence Geronimo CNM) H/O wisdom tooth extraction Tobacco Smoking/Tobacco Use Status: Never Alcohol Alcohol Intake: never Substance Use Substance use type: does not use Prental History History 2 1 Para 0 Hx # Term Pregnancies 0 Multiple births 0 Hx # Pregnancies 0 Ectopic pregnancies 0 AB induced 0 Hx Number of Living Children 0 AB spontaneous 0 Vital Signs and Lab Results Vital Signs Most Recent Vital Signs in EMR: Most Recent Vital Signs Temp Pulse Resp BP 36.9 C 97 H 16 135/98 H 08/29/23 12:33 08/29/23 12:58 08/29/23 10:30 08/29/23 12:58 Lab Results 08/28/23 23:50 08/28/23 23:50 Blood Type / Crossmatch: 2 Patient ABO/Rh O Positive 08/28/23 Antibody Screen NEGATIVE 08/28/23 Complete Blood Count: 2 White Blood Count 11.63 10^3/uL (4.4-10.8) H 08/28/23 23:50 Red Blood Count 4.39 10^6/uL (3.93-5.22) 08/28/23 23:50 Hemoglobin 14.0 g/dL (11.2-15.7) 08/28/23 23:50 Hematocrit 40.9 % (36.0-46.0) 08/28/23 23:50 Platelet Count 144 10^3/uL (130-400) 08/28/23 23:50 Complete Metabolic Panel: 2 Sodium 139 mmol/L (136-145) 08/28/23 23:50 Potassium 4.2 mmol/L (3.5-5.1) 08/28/23 23:50 Chloride 106 mmol/L (98-107) 08/28/23 23:50 Carbon Dioxide 20.8 mmol/L (21.0-32.0) L 08/28/23 23:50 BUN 12 mg/dL (7-18) 08/28/23 23:50 Creatinine 0.8 mg/dL (0.55-1.02) 08/28/23 23:50 Est GFR (CKD-EPI 2020) 97.26 (mL/min/1.73m2) 08/28/23 23:50 Calcium 10.4 mg/dL (8.5-10.1) H 08/28/23 23:50 Albumin 2.9 g/dL (3.4-5.0) L 08/28/23 23:50 Glucose 91 mg/dL (74-106) 08/28/23 23:50 Liver Function Panel: 2 Alanine Aminotransferase (ALT/SGPT) 15 U/L (14-59) 08/28/23 23: 50 Aspartate Amino Transf (AST/SGOT) 14 U/L (15-37) L 08/28/23 23: 50 Coagulation Panel: 2 No Data to Display Cardiac Panel: 2 No Data to Display Arterial Blood Gas: 2 No Data to Display Venous Blood Gas: 2 No Data to Display Pancreas Panel: 2 No Data to Display Thyroid Panel: 2 No Data to Display Infectious Disease: 2 No Data to Display Blood Cultures: 2 No Data to Display Toxicology Panel: 2 No Data to Display Panel: 2 No Data to Display Anesthesia Assessment and Plan Anesthesia History Personal History: No History of General Anesthesia Family History: No Family History of Anesthesia Complications Exercise Tolerance Exercise Tolerance: Metabolic Equivalents>4 Pertinent Negatives Pertinent Negatives: No Major Cardiovascular Symptoms or Complaints and No Major Pulmonary Symptoms or Complaints Cardiac & Pulmonary Exam Cardiac Exam: Normal S1/S2 Heart Sounds Pulmonary Exam: Clear Bilateral Breath Sounds Implantable Cardiac Device Does patient have a Pacemaker or an ICD?: No Airway Exam Known Difficult Airway: No Mallampati Class: 3 Mouth Opening: Normal (> 3cm) Thyromental Distance: Greater than 3 cm Neck Range of Motion: Full ROM Neck Circumference: Normal Teeth Condition: Normal Dentition ASA Classification ASA Score: ASA 2 Emergency Case?: No NPO Status NPO Status: Full Stomach Status Status: Confirmed Anesthesia Plan Resuscitation Status: Full Code Anesthesia Technique: Labor Epidural Airway Planned: Natural Airway Monitors Used: Standard Monitors
[2023-08-29] MEDS: Calcium Carbonate *TUMS* 500 MG CHEW ×2 (14:01→20:04)
--- NOTE | 2023-08-29 15:02 | ANES.NEUR_ITS ---
Epidural/Spinal Catheter Date Performed: 08/29/23 Procedure Start: 13:57 Procedure Stop: 14:45 Requesting Provider: Ronda Love Procedure Location: Obstetrics Reason Performed: Labor Epidural Standard Monitors Applied: Blood Pressure, SpO2 and See EMR for corresponding vital signs Patient Position: Sitting Sedation Given (Indicate Dose Given): No Sedation given Patient Mental Status: Awake Sterility: Hand Hygiene, Surgical Cap, Surgical Mask, Sterile Gloves, Sterile Drape/Sheet and Chlorhexidine Procedure Location: L4-L5 Interspace Epidural Needle: Tuohy 18 Gauge Needle Length: 3.5 Inch Needle Approach: Midline Epidural Procedure: Skin Prepped, Sterile Drape Placed, 1% Lidocaine to skin and subcutaneous tissue with 25G needle, Tuohy Needle placed, NATHALAI to Saline Used, Epidural Catheter Placed, Negative Heme, Negative CSF Flow and Tuohy Needle Removed Catheter Placed?: Catheter Placed Test Dose (Indicate Dose Given): 3ml 1.5% Lidocaine with 1:200K Epinephrine Given and Negative Test Dose Loss of Resistance Depth (cm): 9 Catheter depth at skin (cm): 15 Dressing: [place] Dressing Placed, Mastisol Used and Dressing reinforced with Tape Epidural Provi calvin Bolus (Indicate Dose Given): Total bolus dose given in 3-5 ml divided doses and Total Ropivacaine 0.1% with Fentanyl 2mcg/ml Given from pump. (ml) Dose:: 6mL Additives (Indicate Dose Given ): None Infusion Medication: Medication Infusion Began Medication Infusion: Ropivacaine 0.1% with Fentanyl 2mcg/ml Maintenance Infusion Rate (ml/hour): 12 PCEA Bolus Dose (ml): 5 Block Level: N/A Paresthesia: Left Paresthesia Duration: Transient Ultrasound: Not Used Number of Attempts (See previous attempts in note section): 3 Procedure Tolerated: No Complications and Patient tolerated well Procedure Outcome: Successful Procedure Comment:: First NATHALIA on 1st attempt at 9cm, unable to thread catheter. Dr. Love present for last epidural attempt. Patient tolerated well; present. Performed By: Leti Sharma
--- NOTE | 2023-08-29 19:26 | PGE_ITS ---
Date of service: 08/29/23 Time of Service: 19:00 Informed Consent Informed Consent: Regional Anesthesia (contacted. TESTER PRINTED CIRCUIT BOARDS will speak with pt ) Pelvic Exam Dilation: 8 Effacement (%): 80 station: -1 Cervix Position: mid Consistency: soft Vaginal Exam Presentation: Vertex Comments: Cervix more swollen compared to prior exam @ 15:45 Contractions Contraction Frequency(min): q3-4min Fetus A Heart Rate Baseline: 130 Presentation: Vertex Variability: Moderate (6-25 BPM) Categories: Category I Accelerations: 15 X 15 Decelerations: Early Amniotic Membrane Status: Ruptured Assessment and Plan Assessment and plan (1) Normal labor: Status: Acute Assessment and plan: Pt declines starting pitocin. Would like to try some position changes first. (2) Gestational hypertension affecting first : Status: Acute Assessment and plan: BPs stable. Continue to monitor. Objective Abnormal lab results 08/28/23 Range/Units 23:50 WBC 11.63 H (4.4-10.8) 10^3/uL MPV 11.9 H (8.0-11.0) fL Carbon Dioxide 20.8 L (21.0-32.0) mmol/L Anion Gap 12.2 H (3-11) mmol/L Calcium 10.4 H (8.5-10.1) mg/dL AST 14 L (15-37) U/L Alkaline Phosphatase 120 H (46-116) U/L Albumin 2.9 L (3.4-5.0) g/dL Temp Pulse Resp BP Pulse Ox 98.2 F 121 H 18 123/85 99 08/29/23 18:03 08/29/23 18:36 08/29/23 18:03 08/29/23 18:33 08/29/23 18:36 Laboratory Results WBC 11.63 10^3/uL (4.4-10.8) H 08/28/23 23:50 RBC 4.39 10^6/uL (3.93-5.22) 08/28/23 23:50 Hgb 14.0 g/dL (11.2-15.7) 08/28/23 23:50 Hct 40.9 % (36.0-46.0) 08/28/23 23:50 MCV 93 fL (80-95) 08/28/23 23:50 MCH 31.9 pg (27.0-33.0) 08/28/23 23:50 MCHC 34.2 % (32.0-36.0) 08/28/23 23:50 RDW 13.5 % (11.7-14.6) 08/28/23 23:50 Plt Count 144 10^3/uL (130-400) 08/28/23 23:50 MPV 11.9 fL (8.0-11.0) H 08/28/23 23:50 Sodium 139 mmol/L (136-145) 08/28/23 23:50 Potassium 4.2 mmol/L (3.5-5.1) 08/28/23 23:50 Chloride 106 mmol/L (98-107) 08/28/23 23:50 Carbon Dioxide 20.8 mmol/L (21.0-32.0) L 08/28/23 23:50 Anion Gap 12.2 mmol/L (3-11) H 08/28/23 23:50 BUN 12 mg/dL (7-18) 08/28/23 23:50 Creatinine 0.8 mg/dL (0.55-1.02) 08/28/23 23:50 Est GFR (CKD-EPI 2020) 97.26 (mL/min/1.73m2) 08/28/23 23:50 Glucose 91 mg/dL (74-106) 08/28/23 23:50 Uric Acid 4.4 mg/dL (2.6-6.0) 08/28/23 23:50 Calcium 10.4 mg/dL (8.5-10.1) H 08/28/23 23:50 Total Bilirubin 0.4 mg/dL (0.2-1.0) 08/28/23 23:50 AST 14 U/L (15-37) L 08/28/23 23:50 ALT 15 U/L (14-59) 08/28/23 23:50 Alkaline Phosphatase 120 U/L (46-116) H 08/28/23 23:50 Total Protein 6.9 g/dL (6.4-8.2) 08/28/23 23:50 Albumin 2.9 g/dL (3.4-5.0) L 08/28/23 23:50 Ur Random Creatinine 36.59 mg/dL 08/29/23 01:58 U Random Total Protein 7.8 mg/dL 08/29/23 01:58 U [place] Prot/Creat Ratio 0.21 08/29/23 01:58 Patient ABO/Rh O Positive 08/28/23 23:50 Antibody Screen NEGATIVE 08/28/23 23:50 Subjective Interval history since last seen: Pt has had some relief from her epidural but still feels contractions and hasn't been able to sleep at all. Results Hemoglobin/Hematocrit: Hgb 14.0 g/dL (11.2-15.7) 08/28/23 23:50 Hct 40.9 % (36.0-46.0) 08/28/23 23:50 Abnormal Lab Findings: Abnormal Labs 08/28/23 23:50 WBC 11.63 H MPV 11.9 H Carbon Dioxide 20.8 L Anion Gap 12.2 H Calcium 10.4 H AST 14 L Alkaline Phosphatase 120 H Albumin 2.9 L
[2023-08-29] MEDS: Lactated Ringers 1,000 ML 125 ML IV (20:30)
--- NOTE | 2023-08-29 20:50 | W.PM.OBNL1 ---
Date of service: 08/29/23 Time of Service: 20:30 Informed Consent Informed Consent: Regional Anesthesia (contacted. HISTOLOGY SUPERVISOR will speak with pt ) Pelvic Exam Dilation: 8.5 Effacement (%): 90 station: -1 Position: KOFI Cervix Position: mid Consistency: soft Vaginal Exam Presentation: Vertex Contractions Contraction Frequency(min): q3-4 Fetus A Heart Rate Baseline: 125 Variability: Moderate (6-25 BPM) Categories: Category I Accelerations: 15 X 15 Decelerations: None Amniotic Membrane Status: Ruptured Assessment and Plan Assessment and plan (1) Prolonged rupture of membranes: Status: Acute Assessment and plan: Pt is almost 24hrs s/p ROM but continues to have no s/s of infection. status reassuring. Her labor is not progressing significantly though there was slight change from her prior exam. The head is still not descending further into the pelvis. We discussed that my recommendation would be to consider pitocin augmentation. She is strongly opposed to this. I asked her if she has a plan for the future if her labor does not continue to progress and mentioned that a CS is another option but she is also strongly opposed to this. At this point she would like to continue as is without intervention. (2) Gestational hypertension affecting first : Status: Acute Assessment and plan: Pt declining labetalol dose despite explanation of why it is safe in conjunction with the epidural and is recommended to continue to maintain her BPs in the mildly elevated range. We also discussed the safety during and I offered her reliable sources of information such as [place]. Objective Abnormal lab results 08/28/23 Range/Units 23:50 WBC 11.63 H (4.4-10.8) 10^3/uL MPV 11.9 H (8.0-11.0) fL Carbon Dioxide 20.8 L (21.0-32.0) mmol/L Anion Gap 12.2 H (3-11) mmol/L Calcium 10.4 H (8.5-10.1) mg/dL AST 14 L (15-37) U/L Alkaline Phosphatase 120 H (46-116) U/L Albumin 2.9 L (3.4-5.0) g/dL Temp Pulse Resp BP Pulse Ox 98.4 F 108 H 18 142/78 H 96 08/29/23 20:20 08/29/23 20:47 08/29/23 18:03 08/29/23 20:09 08/29/23 20:47 Laboratory Results WBC 11.63 10^3/uL (4.4-10.8) H 08/28/23 23:50 RBC 4.39 10^6/uL (3.93-5.22) 08/28/23 23:50 Hgb 14.0 g/dL (11.2-15.7) 08/28/23 23:50 Hct 40.9 % (36.0-46.0) 08/28/23 23:50 MCV 93 fL (80-95) 08/28/23 23:50 MCH 31.9 pg (27.0-33.0) 08/28/23 23:50 MCHC 34.2 % (32.0-36.0) 08/28/23 23:50 RDW 13.5 % (11.7-14.6) 08/28/23 23:50 Plt Count 144 10^3/uL (130-400) 08/28/23 23:50 MPV 11.9 fL (8.0-11.0) H 08/28/23 23:50 Sodium 139 mmol/L (136-145) 08/28/23 23:50 Potassium 4.2 mmol/L (3.5-5.1) 08/28/23 23:50 Chloride 106 mmol/L (98-107) 08/28/23 23:50 Carbon Dioxide 20.8 mmol/L (21.0-32.0) L 08/28/23 23:50 Anion Gap 12.2 mmol/L (3-11) H 08/28/23 23:50 BUN 12 mg/dL (7-18) 08/28/23 23:50 Creatinine 0.8 mg/dL (0.55-1.02) 08/28/23 23:50 Est GFR (CKD-EPI 2020) 97.26 (mL/min/1.73m2) 08/28/23 23:50 Glucose 91 mg/dL (74-106) 08/28/23 23:50 Uric Acid 4.4 mg/dL (2.6-6.0) 08/28/23 23:50 Calcium 10.4 mg/dL (8.5-10.1) H 04/10/24 23:50 Total Bilirubin 0.4 mg/dL (0.2-1.0) 08/28/23 23:50 AST 14 U/L (15-37) L 08/28/23 23:50 ALT 15 U/L (14-59) 08/28/23 23:50 Alkaline Phosphatase 120 U/L (46-116) H 08/28/23 23:50 Total Protein 6.9 g/dL (6.4-8.2) 08/28/23 23:50 Albumin 2.9 g/dL (3.4-5.0) L 08/28/23 23:50 Ur Random Creatinine 36.59 mg/dL 08/29/23 01:58 U Random Total Protein 7.8 mg/dL 08/29/23 01:58 U [place] Prot/Creat Ratio 0.21 08/29/23 01:58 Patient ABO/Rh O Positive 08/28/23 23:50 Antibody Screen NEGATIVE 08/28/23 23:50 Vital Signs Reviewed: Yes Subjective Interval history since last seen: Pt can still feel the contractions but no longer needs nitrous. She feels pelvic pressure and some pressure from contractions. She is declining her labetalol dose because she think it is dangerous to get it along with the epidural. She also says she does not plan to take labetalol after delivery because she has read that it can effect breast feeding. Results Hemoglobin/Hematocrit: Hgb 14.0 g/dL (11.2-15.7) 08/28/23 23:50 Hct 40.9 % (36.0-46.0) 08/28/23 23:50 Abnormal Lab Findings: Abnormal Labs 08/28/23 23:50 WBC 11.63 H MPV 11.9 H Carbon Dioxide 20.8 L Anion Gap 12.2 H Calcium 10.4 H AST 14 L Alkaline Phosphatase 120 H Albumin 2.9 L
--- NOTE | 2023-08-29 23:11 | W.PM.OBNL1 ---
Date of service: 08/29/23 Time of Service: 23:11 Informed Consent Informed Consent: Regional Anesthesia (contacted. ENGINEERING MANAGER will speak with pt ) Assessment and Plan Assessment and plan (1) Prolonged rupture of membranes: Status: Acute Assessment and plan: A discussion was had with the pt, her , Leti Sharma and myself about our recommendation to drain her bladder, not only to protect her bladder but also to allow for the baby to progress further into the pelvis. She became fairly adversarial and was unwilling to listen to our recommendations or reasoning behind them. We tried to listen to her concerns and identify anything that we could address but were unable to have a reasonable conversation with her. She accused us of not listening and forcing her to do things. A conversation was then had with the trust administrator communications representative (Jeana Carr), myself and Leti Sharma to make her aware of our concerns in regards to trying to work with the patient as she is not trusting our recommendations. The then spoke with us outside the room to say that he occasionally sees Luz Maria get like this and it is very hard to work with her. He has called her sister to come in to help be a voice of reason and thinks that with enough time and her sister's help she will be more reasonable. (2) Gestational hypertension affecting first : Status: Acute Objective Abnormal lab results 08/28/23 Range/Units 23:50 WBC 11.63 H (4.4-10.8) 10^3/uL MPV 11.9 H (8.0-11.0) fL Carbon Dioxide 20.8 L (21.0-32.0) mmol/L Anion Gap 12.2 H (3-11) mmol/L Calcium 10.4 H (8.5-10.1) mg/dL AST 14 L (15-37) U/L Alkaline Phosphatase 120 H (46-116) U/L Albumin 2.9 L (3.4-5.0) g/dL Temp Pulse Resp BP Pulse Ox 98.4 F 108 H 18 142/89 H 97 08/29/23 22:40 08/29/23 23:08 08/29/23 18:03 08/29/23 21:35 08/29/23 23:08 Laboratory Results WBC 11.63 10^3/uL (4.4-10.8) H 08/28/23 23:50 RBC 4.39 10^6/uL (3.93-5.22) 08/28/23 23:50 Hgb 14.0 g/dL (11.2-15.7) 08/28/23 23:50 Hct 40.9 % (36.0-46.0) 08/28/23 23:50 MCV 93 fL (80-95) 08/28/23 23:50 MCH 31.9 pg (27.0-33.0) 08/28/23 23:50 MCHC 34.2 % (32.0-36.0) 08/28/23 23:50 RDW 13.5 % (11.7-14.6) 08/28/23 23:50 Plt Count 144 10^3/uL (130-400) 08/28/23 23:50 MPV 11.9 fL (8.0-11.0) H 08/28/23 23:50 Sodium 139 mmol/L (136-145) 08/28/23 23:50 Potassium 4.2 mmol/L (3.5-5.1) 08/28/23 23:50 Chloride 106 mmol/L (98-107) 08/28/23 23:50 Carbon Dioxide 20.8 mmol/L (21.0-32.0) L 08/28/23 23:50 Anion Gap 12.2 mmol/L (3-11) H 08/28/23 23:50 BUN 12 mg/dL (7-18) 08/28/23 23:50 Creatinine 0.8 mg/dL (0.55-1.02) 08/28/23 23:50 Est GFR (CKD-EPI 2020) 97.26 (mL/min/1.73m2) 08/28/23 23:50 Glucose 91 mg/dL (74-106) 08/28/23 23:50 Uric Acid 4.4 mg/dL (2.6-6.0) 08/28/23 23:50 Calcium 10.4 mg/dL (8.5-10.1) H 08/28/23 23:50 Total Bilirubin 0.4 mg/dL (0.2-1.0) 08/28/23 23:50 AST 14 U/L (15-37) L 08/28/23 23:50 ALT 15 U/L (14-59) 08/28/23 23:50 Alkaline Phosphatase 120 U/L (46-116) H 08/28/23 23:50 Total Protein 6.9 g/dL (6.4-8.2) 08/28/23 23:50 Albumin 2.9 g/dL (3.4-5.0) L 08/28/23 23:50 Ur Random Creatinine 36.59 mg/dL 08/29/23 01:58 U Random Total Protein 7.8 mg/dL 08/29/23 01:58 U [place] Prot/Creat Ratio 0.21 08/29/23 01:58 Patient ABO/Rh O Positive 08/28/23 23:50 Antibody Screen NEGATIVE 08/28/23 23:50 Subjective Interval history since last seen: Pt resistent to a catheter though has not urinated significant amounts since epidural placement. She tried to use a bedpan and then eventually agreed to a bladder scan which showed >400ml. She wanted her epidural to be decreased but not turned off. She said that if she could feel the contractions better she could breathe the baby down and that would help labor progress. A repeat bladder scan about an hour later showed >600ml. Results Hemoglobin/Hematocrit: Hgb 14.0 g/dL (11.2-15.7) 08/28/23 23:50 Hct 40.9 % (36.0-46.0) 08/28/23 23:50 Abnormal Lab Findings: Abnormal Labs 08/28/23 23:50 WBC 11.63 H MPV 11.9 H Carbon Dioxide 20.8 L Anion Gap 12.2 H Calcium 10.4 H AST 14 L Alkaline Phosphatase 120 H Albumin 2.9 L
--- NOTE | 2023-08-29 23:58 | PGE_ITS ---
Date of service: 08/29/23 Time of Service: 23:59 Informed Consent Informed Consent: Regional Anesthesia (contacted. NON FOOD RECEIVING CLERK will speak with pt ) Pelvic Exam Dilation: 10 Effacement (%): 100 station: +1 Contractions Contraction Frequency(min): q2-3 Fetus A Heart Rate Baseline: 150 Presentation: Vertex Variability: Moderate (6-25 BPM) Categories: Category II Decelerations: Variable Amniotic Membrane Status: Ruptured Assessment and Plan Assessment and plan (1) Prolonged rupture of membranes: Status: Acute Assessment and plan: Will encourage pushing. Cat 2 tracing - will monitor. (2) Gestational hypertension affecting first : Status: Acute Assessment and plan: BPs elevated. Pt feeling significant pain with ctxs but attempted BPs between contractions. She agreed to take her oral labetalol and a dose of IV labetalol. Will continue to monitor Objective Abnormal lab results 08/28/23 Range/Units 23:50 WBC 11.63 H (4.4-10.8) 10^3/uL MPV 11.9 H (8.0-11.0) fL Carbon Dioxide 20.8 L (21.0-32.0) mmol/L Anion Gap 12.2 H (3-11) mmol/L Calcium 10.4 H (8.5-10.1) mg/dL AST 14 L (15-37) U/L Alkaline Phosphatase 120 H (46-116) U/L Albumin 2.9 L (3.4-5.0) g/dL Temp Pulse Resp BP Pulse Ox 99 F 112 H 18 159/113 H 97 08/29/23 23:58 08/29/23 23:57 08/29/23 18:03 08/29/23 23:54 08/29/23 23:57 Laboratory Results WBC 11.63 10^3/uL (4.4-10.8) H 08/28/23 23:50 RBC 4.39 10^6/uL (3.93-5.22) 08/28/23 23:50 Hgb 14.0 g/dL (11.2-15.7) 08/28/23 23:50 Hct 40.9 % (36.0-46.0) 08/28/23 23:50 MCV 93 fL (80-95) 08/28/23 23:50 MCH 31.9 pg (27.0-33.0) 08/28/23 23:50 MCHC 34.2 % (32.0-36.0) 08/28/23 23:50 RDW 13.5 % (11.7-14.6) 08/28/23 23:50 Plt Count 144 10^3/uL (130-400) 08/28/23 23:50 MPV 11.9 fL (8.0-11.0) H 08/28/23 23:50 Sodium 139 mmol/L (136-145) 08/28/23 23:50 Potassium 4.2 mmol/L (3.5-5.1) 08/28/23 23:50 Chloride 106 mmol/L (98-107) 08/28/23 23:50 Carbon Dioxide 20.8 mmol/L (21.0-32.0) L 08/28/23 23:50 Anion Gap 12.2 mmol/L (3-11) H 08/28/23 23:50 BUN 12 mg/dL (7-18) 08/28/23 23:50 Creatinine 0.8 mg/dL (0.55-1.02) 08/28/23 23:50 Est GFR (CKD-EPI 2020) 97.26 (mL/min/1.73m2) 08/28/23 23:50 Glucose 91 mg/dL (74-106) 08/28/23 23:50 Uric Acid 4.4 mg/dL (2.6-6.0) 08/28/23 23:50 Calcium 10.4 mg/dL (8.5-10.1) H 08/28/23 23:50 Total Bilirubin 0.4 mg/dL (0.2-1.0) 08/28/23 23:50 AST 14 U/L (15-37) L 08/28/23 23:50 ALT 15 U/L (14-59) 08/28/23 23:50 Alkaline Phosphatase 120 U/L (46-116) H 08/28/23 23:50 Total Protein 6.9 g/dL (6.4-8.2) 08/28/23 23:50 Albumin 2.9 g/dL (3.4-5.0) L 08/28/23 23:50 Ur Random Creatinine 36.59 mg/dL 08/29/23 01:58 U Random Total Protein 7.8 mg/dL 08/29/23 01:58 U [employer] Prot/Creat Ratio 0.21 08/29/23 01:58 Patient ABO/Rh O Positive 08/28/23 23:50 Antibody Screen NEGATIVE 08/28/23 23:50 Vital Signs Reviewed: Yes Subjective Interval history since last seen: Pt increasingly uncomfortable since epidural was turned down. She allowed her bladder to be drained for 700ml of urine. Results Hemoglobin/Hematocrit: Hgb 14.0 g/dL (11.2-15.7) 08/28/23 23:50 Hct 40.9 % (36.0-46.0) 08/28/23 23:50 Abnormal Lab Findings: Abnormal Labs 08/28/23 23:50 WBC 11.63 H MPV 11.9 H Carbon Dioxide 20.8 L Anion Gap 12.2 H Calcium 10.4 H AST 14 L Alkaline Phosphatase 120 H Albumin 2.9 L
[2023-08-30] VITALS (23 sets, daily range): BP systolic 100–195; BP diastolic 63–97; PULSE 83–114; RESP 16–18; TEMP 36.6–37.2; O2SAT 95–100
[2023-08-30] MEDS: Labetalol 100 MG/20 ML VIAL 20 MG IVP (00:05)
--- NOTE | 2023-08-30 00:05 | PDOC.ANES ---
Date of service: 08/30/23 Time of Service: 21:37 Anesthesia Note Report Anesthesia Note: Notified by Dr. May that patient was requesting for the epidural rate to be cut in half due to her hope that it would help re-initiate a more active labor pattern. I met bedside to have a conversation with with the patient, her , Dr. May, and myself about my recommendations moving forward to include draining the bladder (high volume per bladder scan) and to take antihypertensive medication as well as the recommendations of Dr. Laughlin in regards to labor progression. The patient became quite reluctant and adamantly refused our recommendations against medical advice and was again educated about the risks of refusal. The patient was provided multiple opportunities to voice concerns and ask any clarifying questions, but continued to question our medical judgment. The spoke to us outside of the room to offer his understanding that we were attempting to try and provide support for his and he has elected to call in the patient's sister in to offer support. A second conversation was had with the patient and her after a short period of time. The patient was willing to agree to a straight catheter to drain her bladder and treatment of elevated blood pressures. The epidural remained running per nursing documentation. Dr. Laughlin was made aware. The patient's sister also arrived to offer support. Ultimately, the patient was successful in dilating to 10cm. The patient request for the epidural to be increased back up, and was adjusted per nursing notes and is currently running at 10mL/hr with a PCEA available. A 5mL bolus was administered at the request of the patient. Dr. Laughlin and RN aware of current epidural status. Asked to reach out to me with any questions or concerns.
--- NOTE | 2023-08-30 01:20 | W.OBDELIVERY ---
Date of service: 08/30/23 Time of Service: 12:40 OB Labor/ Delivery Information Baby A Delivery Delivery Method: Spontaneaous Presentation: Vertex Vertex Position: Left Occipital Anterior Cord Description-Baby A: 3 Vessels Amniotic Fluid: Clear Estimated Blood Loss: 150 Delivery Outcome: Liveborn Note: The pt was found to be fully dilated. She pushed about 45 mins to deliver the infant's head in KOFI position followed by the shoulders and the rest of the body. The baby was placed on mom's abdomen. After >1min the cord was clamped x2 and cut. Cord blood collected. Cord segment set aside for gasses but the aircraft delivery checker felt it was not necessary to draw them. The placenta delivered with gentle cord traction and fundal massage and appeared intact. A 1st degree perineal laceration on the right side was repaired with 3-0 vicryl. Fundus was firm with good hemostasis. Mom and baby stable at time of note. Providers Doctor: Leslie May Mentally Impaired Teacher: Leti Sharma Checkering Machine Adjuster: Kathy Corado Nurse: Barb Melchor Nurse: Sofia Calles Labor/Delivery Information Number of Babies in Womb: 1 Steroids Given: None Reason Steroids Not Administered: N/A Group Beta Strep: Negative Antibiotics Administered: No Rubella Status: Immune Blood Type: O+ Varicella Immunity: Not Tested Medication in Delivery: nitrous, epidueral Maternal Complications: Other Shoulder Dystocia: No Stages of Labor Onset of Labor Date: 08/28/23 Onset of Labor Time: 21:15 Complete Dilatation Date: 08/30/23 ROM Baby A: 08/28/23 ROM Baby A: 21:15 ROM Total Time- Baby A: [id number] Delivery Date-Baby A: 08/30/23 Infant Delivery Time-Baby A: 00:40 Placenta Delivery Date-Baby A: 08/30/23 Placenta Delivery Time-Baby A: 00:55 Labor-Stage 3 Duration: 15 minutes Total Length of Labor-Baby A: 27 hours and 25 minutes Placenta Cultured: No Placenta Status: Delivered Baby A Infant Gender: Male Gestational Status: Term (39-41.6 wks) Gestational Age in Weeks/Days: 39 Weeks and 0 Days Score-1 Minute Interval(Baby A) Heart Rate-1 minute: 100 BPM or Greater Respiratory Effort- 1 minute: Slow Respiration/Weak Cry Muscle Tone-1 minute: Minimal Flexion/Extension Reflex Response-1 minute: Prompt Response Color-1 minute: Pallor or Cyanosis Total Score-1 minute: 6 Score-5 Minute Interval(Baby A) Heart Rate- 5 minute: 100 BPM or Greater Respiratory Effort-5 minute: Spontaneous/Strong Cry Muscle Tone-5 minute: Active Movement Reflex Response-5 minute: Prompt Response Color-5 minute: Pallor or Cyanosis Total Score- 5 minute: 8
[2023-08-30] MEDS: Dibucaine 1% 28 GM TUBE TP (03:27)
[2023-08-30] MEDS: Hamamelis Leaf/Glycerin 100 EACH BOX PR (03:28)
[2023-08-30] MEDS: Normal Saline Flush 10 ML SYR IVP (03:33)
[2023-08-30] MEDS: Docusate Sodium 100 MG CAP PO (07:57)
[2023-08-30] MEDS: Acetaminophen 325 MG TAB 650 MG PO ×3 (07:58→20:45)
[2023-08-30] MEDS: Ibuprofen 600 MG TAB PO ×3 (07:58→20:54)
[2023-08-30] MEDS: Labetalol 100 MG TAB 200 MG PO ×2 (07:59→20:45)
--- NOTE | 2023-08-30 08:25 | W.PM.OBPNV1 ---
Date of service: 08/30/23 Time of Service: 08:25 Assessment and Plan Assessment and plan (1) Vaginal delivery: Status: Acute Assessment and plan: Patient is seen this morning day 0. The events of last evening and her delivery were reviewed. Patient and her offered opportunity to ask questions and voiced concerns. Overall, she does not feel that her experience went as she wanted. We discussed again at length, her medical conditions which are advanced maternal age and chronic hypertension and the implications thereof. She did have a period of time with elevated blood pressure last night where she received not only her oral dose of labetalol, but also an IV dose. Diastolic blood pressures continue to be elevated in the 95 range. She has agreed to take her antihypertensive this morning, however she states that she is planning on weaning off of her medication in the near future. She desires discharge to home at the 24-hour montrell. Again I emphasized the fact that this would not be my recommendation as she has elevated blood pressures, had been ruptured for a prolonged period of time, is of advanced maternal age. She understands that discharge early would be AGAINST MEDICAL ADVICE. She was encouraged to continue to use her labetalol, continue to monitor her blood pressure, continue to monitor for worsening signs of preeclampsia. She is opting for care at her previous gynecology practice. (2) Advanced maternal age (AMA) in : Status: Acute (3) Stage 1 hypertension: Status: Acute Assessment and plan: Labile blood pressures, no evidence of severe disease (4) Poor compliance: Status: Acute Assessment and plan: Patient is resistant and reluctant to follow medical advice. I would anticipate that she may leave at the 24-hour montrell if not sooner. She is opting to receive care with her previous gynecology service at [facility]. Support, listening, understanding provided to the best of my ability this morning. Exam Physical Exam Vital signs: Temp Pulse Resp BP Pulse Ox 98.3 F 113 H 18 100/67 99 08/30/23 03:36 08/30/23 02:34 08/29/23 18:03 08/30/23 03:36 08/30/23 00:12 Vital Signs Reviewed: Yes Notable Details: Labile blood pressures Constitutional Comments: Patient is alert and oriented, no apparent distress. HEENT Exam HEENT Exam: Normal Respiratory Exam Respiratory Exam: Normal Cardiovascular Exam Cardiovascular Exam: Normal DetailedPsychiatric Exam Psych Exam: Normal Affect and Good Insight Results Hemoglobin/Hematocrit: Hgb 14.0 g/dL (11.2-15.7) 08/28/23 23:50 Hct 40.9 % (36.0-46.0) 08/28/23 23:50 Abnormal Lab Findings: Abnormal Labs 08/28/23 23:50 WBC 11.63 H MPV 11.9 H Carbon Dioxide 20.8 L Anion Gap 12.2 H Calcium 10.4 H AST 14 L Alkaline Phosphatase 120 H Albumin 2.9 L
--- NOTE | 2023-08-30 12:07 | W.ANESPOSTOP ---
Postoperative Evaluation Date, Time and Location Date Performed: 08/30/23 Time Performed: 11:45 Patient Location: Obstetrics Vital Signs Most Recent Imported Vital Signs: Most Recent Vital Signs Temp Pulse Resp BP Pulse Ox 36.6 C 90 18 107/63 98 08/30/23 08:00 08/30/23 09:59 08/30/23 08:00 08/30/23 09:59 08/30/23 08:00 Pain Score Most Recent Pain Score: Most Recent Pain Score Pain Level 4 08/30/23 07:58 Assessment Mental Status: Awake (Alert & Oriented to Patient Baseline) Airway and Respiratory Function: Patent airway with normal (patient baseline) respiratory exam Cardiovascular Function: Hemodynamically Stable Hydration Status: Adequately Hydrated Nausea & Vomiting: No Nausea or Vomiting Pain: Pain is tolerable per patient Peripheral Nerve Block: Patient did not receive a nerve block Postoperative Comments:: Patient has been out of bed and showered. Patient voiced no current questions and encouraged to reach out to our service with any questions or concerns that may arise.
[2023-08-30] MEDS: Calcium Carbonate *TUMS* 500 MG CHEW 1000 MG PO (12:16)
[2023-08-31 03:05] VITALS: BP 116/71; PULSE 91; RESP 18; TEMP 36.7
[2023-08-31] MEDS: Labetalol 100 MG TAB 200 MG PO (08:40)
--- NOTE | 2023-08-31 08:44 | W.PM.OBPNV1 ---
Date of service: 08/31/23 Time of Service: 08:52 Assessment and Plan Assessment and plan (1) Vaginal delivery: Status: Acute Assessment and plan: day 1 that is post vaginal delivery after prolonged rupture of membranes. Physically doing reasonably well. Patient does have chronic hypertension. She is desirous of weaning off of her blood pressure medication. In light of her blood pressure lability my encouragement was for her to continue to use her medication, labetalol, 200 mg twice daily with follow-up with a provider in the next 24 to 48 hours. Discussion of signs and symptoms of worsening hypertension, and preeclampsia with severe features was discussed with the patient and her . She was also given precautions regarding anxiety, depression, and psychosis. She will be discharged home today to the care of her previous educational institution curator at her request. All of her questions were answered to the best my ability today. (2) Prolonged rupture of membranes: Status: Acute Assessment and plan: Stable, afebrile, no signs of endometritis. (3) Advanced maternal age (AMA) in : Status: Acute Subjective Subjective Interval history: Patient seen and examined this morning. Importance of continued monitoring for preeclampsia with severe features, worsening blood pressure, and medical complications were discussed at length with both the patient, and her . She states that overall she is feeling reasonably well, having some uterine crampiness and some perineal discomfort though not out of proportion for . Her most recent blood pressure did show an elevated diastolic of 99, though she is due to take her labetalol. She was strongly encouraged continuing her medication at 200 mg of labetalol orally twice daily. Blood pressure check in the next 24 to 48 hours was also recommended. We offered to have that done here at the center, in our office, or with her previous educational institution curator. Patient's Mood: Appropriate feeding status: Exclusively breast feeding Exam Physical Exam Vital signs: Temp Pulse Resp BP Pulse Ox 98.1 F 91 H 18 116/71 100 08/31/23 03:05 08/31/23 03:05 08/31/23 03:05 08/31/23 03:05 08/30/23 21:02 Vital Signs Reviewed: Yes Notable Details: Most recent blood pressure with diastolic of 99, premedication. Constitutional Constitutional: no acute distress HEENT Exam HEENT Exam: Normal Respiratory Exam Respiratory Exam: Normal Cardiovascular Exam Cardiovascular Exam: Normal Abdominal Exam Comments: Soft, nontender Fundal Exam Fundus: Below Umbilicus and Firm Extremities Exam Extremity Exam: Normal and Edema (1+ bilateral); negative Calf Tenderness Results Hemoglobin/Hematocrit: Hgb 14.0 g/dL (11.2-15.7) 08/28/23 23:50 Hct 40.9 % (36.0-46.0) 08/28/23 23:50 Abnormal Lab Findings: Abnormal Labs 08/28/23 23:50 WBC 11.63 H MPV 11.9 H Carbon Dioxide 20.8 L Anion Gap 12.2 H Calcium 10.4 H AST 14 L Alkaline Phosphatase 120 H Albumin 2.9 L
[2023-08-31 08:49] VITALS: BP 134/99; PULSE 93; RESP 18; TEMP 36.6; O2SAT 99
--- NOTE | 2023-08-31 09:01 | W.PM.OBDISCH ---
Date of service: 08/31/23 Time of Service: 09:01 DS: Diagnosis Discharge Diagnosis (1) Vaginal delivery: Status: Acute Asessment and Plan: day 1 status post vaginal . Discharge home. (2) Prolonged rupture of membranes: Status: Acute Asessment and Plan: Resolved, afebrile. No signs of endometritis (3) Advanced maternal age (AMA) in : Status: Acute Discharge Plan Disposition Patient Disposition: Home Condition: Improving Discharge Details Reason For Visit: Rupture of Membranes Admit Date/Time: 08/29/23 23:45 Admit Provider: Leslie aMy Attending Provider: Leslie May Primary Care Provider: Leslie May Hospital Course Hospital Course: Patient was admitted to the obstetrics service after having spontaneous rupture of membranes. She had a prolonged labor course. Recommendations for augmentation of labor per the patient were declined. She initially had pain management by self hypno birthing, and the use of nitrous oxide. During the time that her pain increased, she did receive an epidural for pain control. During her labor, she had extremely labile blood pressures and was refusing medication and interventions from time to time. She did finally agree to straight cathing of her bladder for 700 cc and her oral dose, and IV dose of labetalol which improved her blood pressure, and allowed for vaginal . She was discharged to home day 1 at her request with stable vital signs, afebrile and continuing to take her labetalol as previously directed. She will follow-up at her request with her previous obstetricians at [facility]. That service was notified of the patient's delivery and recommendation for blood pressure check and close follow-up in 24 to 48 hours. Home Meds and New Rx's Prescriptions: New ibuprofen 800 mg tablet 800 mg PO Q8H PRNQty: 60 1RF docusate sodium [Colace] 100 mg capsule 100 mg PO BID Qty: 30 1RF Continued famotidine [Pepcid] 20 mg tablet 20 mg PO DAILY Classic 28 mg iron- 800 mcg tablet 1 tab PO DAILY labetalol 100 mg tablet 200 mg PO BID Qty: 120 1RF Patient Comments: dose changed on 08/27/23 to 300 mg BID Discontinued aspirin 81 mg tablet,chewable 81 mg PO DAILY Discharge Instructions Additional Instructions: Follow-up in 24 to 48 hours for blood pressure check with obstetrics, patient requests [facility] obstetrics. Follow-up in 2 and 6 weeks for examination. Stand Alone Forms: BC Instructions, BC Post Vaginal Deliver Activity:: Pelvic rest Equipment/Supplies:: No Equipment Needed Diet:: As Tolerated Discharge Orders Discharge Orders: Discharge Order (Routine); Ordered 08/31/23 Ordered By: Kandy Garcia OB:DS Summary Summary Vaginal Delivery Method: Spontaneaous Laceration Description: Perineal Laceration Extension: First Degree Contraception Discussed Contraception Discussed: Yes Contraceptive Plan: Not planning to use, Gender-Baby A: Male Status at Discharge Functional status at discharge: independent ambulation Overall status at discharge: patient is progressing back to baseline Mental Status: mental status grossly normal Speech and Movement: speech and movement normal Mood: congruent mood Affect: normal affect Quality:SDOH Health Related Social Needs: No Data to Display Exam Physical Exam Vital signs: Temp Pulse Resp BP Pulse Ox 97.9 F 93 H 18 134/99 H 99 08/31/23 08:49 08/31/23 08:49 08/31/23 08:49 08/31/23 08:49 08/31/23 08:49 PFSH All Active Problems Poor compliance (Acute) Patient is not receptive to medical advice Vaginal delivery (Acute) Prolonged rupture of membranes (Acute) Normal labor (Acute) Ruptured, membranes, premature (Acute) Gestational hypertension affecting first (Acute) Stage 1 hypertension (Acute) (Acute) High BMI (Acute) Advanced maternal age (AMA) in (Acute) Medical History Pyelonephritis in her 20's Surgical History H/O wisdom tooth extraction Family History Maternal Grandfather Heart disease Maternal Grandmother Stroke Mother Thyroid disease Paternal Grandmother Pulmonary embolism Maternal Uncle Diabetes Paternal Grandfather Diabetes Social History Smoking/Tobacco Use Status: Never Smoking risk assessment performed?: Yes Alcohol Intake: never Substance use type: does not use Housing: house Do you feel safe at home: Yes Do you feel safe in your relationship?: Yes History History 1 Para 0 Hx # Term Pregnancies 0 Multiple births 0 Hx # Pregnancies 0 Ectopic pregnancies 0 AB induced 0 Hx Number of Living Children 0 AB spontaneous 0 DS: Data Vitals/I&O Vitals and I&O: Vital Signs Temperature 97.9 F 08/31/23 08:49 Temperature Source Tympanic 08/31/23 08:49 Pulse 93 H 08/31/23 08:49 Pulse Rhythm Regular 08/31/23 08:49 Respiratory Rate 18 08/31/23 08:49 Respiratory Depth Normal 08/29/23 20:31 Blood Pressure 134/99 H 08/31/23 08:49 Blood Pressure Mean 110 08/31/23 08:49 Pulse Oximetry 99 08/31/23 08:49 Oxygen Delivery Method Room Air 08/28/23 23:45 Oxygen Flow Rate 0 08/28/23 23:45 Pain Level 3 08/30/23 20:54 Comment BP reported to MD, Pt received ordered labetalol 08/31/23 08:49 Intake & Output 08/30/23 08/30/23 08/31/23 11:59 23:59 11:59 Output Total 2099 Balance -2099 / -2099 Output: Urine 2099 Other: Urine Color Yellow Yellow Pale Yellow
== END 2023-08-31 10:00 | disposition home or self-care (01) | DRG 807 ==
LOC: BCD 23:45 → OBS 23:45
PROVIDERS: Admitting Provider Obstetrics & Gynecology; PCP Obstetrics & Gynecology; Visit Provider Obstetrics & Gynecology
DX: O13.4 Gestational [pregnancy-induced] hypertension without significant proteinuria, complicating childbirth; Z37.0 Single live birth; Z3A.39 39 weeks gestation of pregnancy; O42.92 Full-term premature rupture of membranes, unspecified as to length of time between rupture and onset of labor; O70.0 First degree perineal laceration during delivery; Z91.198 Patient's noncompliance with other medical treatment and regimen for other reason
CPT/HCPCS: 80053; 85027; 86850; 86900; 86901; 82565; 84156; 84550; J1920; J2003